=== PATIENT | female | born 1995 | race Caucasian/White ===

== ENCOUNTER → 2018-02-27 | Outpatient (CLI) | payer OTHER ==
[~2018-02-27] MED LIST: AMOX-559 PO; LORA-1455 PO; ONDA4TAB9 PO
--- NOTE | 2018-02-27 15:33 | RADIOLOGY IMAGING REPORT ---
FACILITY: [facility] - [place] PATIENT NAME: José Antonio Cronin : 1995 MR: [id number] V: [id number] EXAM DATE: ORDERING PHYSICIAN: CLAYTON REY TECHNOLOGIST: Location: [facility] [place] Patient: José Antonio Cronin : 1995 Visit/Account:[id number] Date of Sevice: 02/27/2018 2 VIEWS CHEST INDICATION: Massive chest wall. Localized swelling with pain. COMPARISON: 06/20/2016. FINDINGS: Cardiomediastinal silhouette and pulmonary vessels within normal limits. There is no focal infiltrate or lobar consolidation. There is no pneumothorax or pleural effusion. No nodule. Upper abdomen is unremarkable. No acute or focal bony abnormality. IMPRESSION: 1. No acute or focal abnormality. Report Dictated By: Jamarcus Beard at 02/27/2018 3:26 PM Report E-Signed By: Jamarcus Beard at 02/27/2018 3:29 PM WSN:[id number]
== END ==
LOC: RAD 14:58
PROVIDERS: ATTEND Nurse Practitioner Family
DX: R22.2 Localized swelling, mass and lump, trunk (principal)
CPT/HCPCS: 71046

== ENCOUNTER 2018-04-04 03:02 | Emergency (ER) | payer OTHER ==
--- NOTE | 2018-04-04 03:08 | ER Report ---
History and Physical Time Seen By MD: 03:04 HPI/ROS CHIEF COMPLAINT: Alcohol intoxication, vomiting HISTORY OF PRESENT ILLNESS: 23-year-old female brought in by her family with concerns of her being passed out intoxicated. She continues to have vomiting and abnormal breathing pattern. She's having convulsions which are dry heaves. She denies other drug use. She denies exposure to ill contacts or consumption of bad food. REVIEW OF SYSTEMS: Respiratory: No cough, no dyspnea. Cardiovascular: No chest pain, no palpitations. Gastrointestinal: As above Musculoskeletal: No back pain. Allergies: Coded Allergies: No Known Allergies (Verified Allergy, Mild, 04/04/18) Home Meds Discontinued Reported Medications Ondansetron (ONDANSETRON ODT) 4 Mg Tab.rapdis, 4 MG PO Q4-6H 06/20/16 Discontinued Scripts Lorazepam (ATIVAN) 0.5 Mg Tablet, 0.5 MG PO Q6H PRN for NAUSEA/VOMITING, #12 TAB 0 Refills Prov:ROXANN MERCADO MD 06/20/16 Amoxicillin/Pot Clav 875-125 Mg Tab (AUGMENTIN 875-125 TABLET) 1 Each Tablet, 1 TAB PO Q12H, #14 TAB 0 Refills Prov:ROXANN MERCADO MD 06/20/16 Reviewed Nurses Notes: Yes Old Medical Records Reviewed: Yes Hx Substance Use Disorder: No Hx Alcohol Use: No Constitutional Vital Sign - Last 24 Hours 04/04/18 04/04/18 03:10 04:19 Temp 97.9 Pulse 128 92 Resp 17 16 B/P (MAP) 108/78 115/72 (86) Pulse Ox 92 92 O2 Delivery Room Air Room Air Physical Exam Vital signs stable, afebrile, pulse ox normal General Appearance: The patient is alert, has no immediate need for airway protection and no current signs of toxicity. Palpation of the head and neck reveal no tenderness or trauma HEENT: Pupils equal and round no injection. TMs normal, oropharynx without dental trauma, heavy odor of emesis and EtOH. Respiratory: Chest is non tender, lungs are clear to auscultation. No chest wall tenderness Cardiac: regular rate and rhythm Gastrointestinal: Abdomen is soft and non tender, no masses, bowel sounds normal. Musculoskeletal: Neck: Neck is supple and non tender. No meningismus Extremities have full range of motion and are non tender. No evidence of trauma Skin: No rashes or lesions. DIFFERENTIAL DIAGNOSIS: After history and physical exam differential diagnosis was considered for alcohol poisoning, food poisoning, gastroenteritis, viral syndrome, toxidrome syndrome Medical Decision Making Data Points Laboratory Hematology Test 04/04/18 03:13 Serum Alcohol 151 mg/dl Chemistry Test 04/04/18 03:13 Serum Alcohol 151 mg/dl Toxicology Test 04/04/18 03:13 Serum Alcohol 151 mg/dl ED Course/Re-evaluation Clinical Indication for ER IV: Hydration, IV Access ED Course Patient was admitted to an examination room. H&P was done. The differential diagnoses was considered. On conical examination. Patient with repetitive dry heaves and emesis. She admits to heavy alcohol ingestion earlier. Patient's treated with IV fluid hydration 1 L of normal saline, Zofran 4,000,000 g IV. A blood alcohol level returns at 151. Results are discussed with the patient and her family. Patient's discharged home with 2 Zofran tablets to control any further vomiting. She is advised to avoid heavy alcohol ingestion in the future. Decision to Disposition Date: Apr 04, 2018 Decision to Disposition Time: 03:42 Depart Departure Latest Vital Signs Vital Signs Date Time Temp Pulse Resp B/P (MAP) Pulse Ox O2 Delivery O2 Flow Rate FiO2 04/04/18 04:19 92 16 115/72 (86) 92 Room Air 04/04/18 03:10 97.9 Impression: Primary Impression: Alcohol poisoning Condition: Improved Disposition: HOME OR SELF-CARE Patient Instructions: Alcohol Intoxication (ED) Additional Instructions: Avoid drinking alcohol to excess Drink plenty of fluids Problem Qualifiers Primary Impression: Alcohol poisoning Encounter type: initial encounter Injury intent: accidental or unintentional Qualified Codes: T51.91XA - Toxic effect of unspecified alcohol, accidental (unintentional), initial encounter VERA MATTA DO Apr 04, 2018 03:08
[2018-04-04] MEDS ORDERED: ONDANSETRON 4 MG/2 ML VIAL IVP ONE (03:10)
[2018-04-04] MEDS ORDERED: NS(*) 0.9% 1000 ML BAG 1,000 ML IV ONE (03:10)
[2018-04-04] MEDS ORDERED: ONDANSETRON 4 MG ODT TH SL ONE (03:50)
[2018-04-04 04:19] VITALS: BP 115/72
== END 2018-04-04 04:22 | disposition home or self-care (01) ==
LOC: ER 03:37
DX: T51.91XA Toxic effect of unspecified alcohol, accidental (unintentional), initial encounter (principal); Y90.6 Blood alcohol level of 120-199 mg/100 ml
CPT/HCPCS: 80320; 96361; 96374; 99284; J2405; J7030; S0119

== ENCOUNTER → 2018-04-25 | Outpatient (CLI) | payer OTHER ==
[~2018-04-25] MED LIST changes: +METR-1 PO
== END ==
LOC: LAB 13:58
PROVIDERS: ATTEND Obstetrics & Gynecology
DX: N89.8 Other specified noninflammatory disorders of vagina (principal)
CPT/HCPCS: 87210